=== PATIENT | male | born 1970 | race Hispanic/Latino ===

== ENCOUNTER → 2023-04-27 | Outpatient (REF) | payer OTHER ==
[~2023-04-27] MED LIST: LIDOCAINE VISC 2% SOLN 15 ML UDC ONE
== END ==
LOC: WCC 13:47
PROVIDERS: ATTEND Family Medicine Adult Medicine
DX: S91.206A Unspecified open wound of unspecified lesser toe(s) with damage to nail, initial encounter (principal); I96 Gangrene, not elsewhere classified; S91.104A Unspecified open wound of right lesser toe(s) without damage to nail, initial encounter

== ENCOUNTER → 2023-05-01 | Outpatient (REF) | payer OTHER | LOC: WCC 13:58 | PROVIDERS: ATTEND Family Medicine Adult Medicine | DX: S91.206A Unspecified open wound of unspecified lesser toe(s) with damage to nail, initial encounter (principal); S91.104A Unspecified open wound of right lesser toe(s) without damage to nail, initial encounter; S91.204D Unspecified open wound of right lesser toe(s) with damage to nail, subsequent encounter; B96.5 Pseudomonas (aeruginosa) (mallei) (pseudomallei) as the cause of diseases classified elsewhere; B95.4 Other streptococcus as the cause of diseases classified elsewhere; B96.89 Other specified bacterial agents as the cause of diseases classified elsewhere | CPT/HCPCS: 88304; 88305; 88311 ==